=== PATIENT | female | born 1980 | race Caucasian/White ===

== ENCOUNTER 2021-02-24 06:00 | Outpatient (RCR) | payer MEDICAID, SELFPAY | END 2021-03-11 23:59 | disposition home or self-care (01) | LOC: APT 06:00 | PROVIDERS: PCP Nurse Practitioner Family; Referring Provider Nurse Practitioner Family; Visit Provider Nurse Practitioner Family | DX: G89.29 Other chronic pain (principal); M54.9 Dorsalgia, unspecified; Z78.9 Other specified health status; M51.26 Other intervertebral disc displacement, lumbar region | CPT/HCPCS: 97110; 97163 ==

== ENCOUNTER → 2021-02-25 10:00 | Outpatient (BNVA) | payer MEDICAID, SELFPAY | PROVIDERS: PCP Nurse Practitioner Family; Referring Provider Nurse Practitioner Family; Visit Provider Orthopaedic Surgery | DX: M54.5 Low back pain (principal); M48.061 Spinal stenosis, lumbar region without neurogenic claudication | CPT/HCPCS: 72110 ==

== ENCOUNTER → 2021-08-23 17:03 | Outpatient (BNVA) | payer MEDICAID, SELFPAY | PROVIDERS: PCP Nurse Practitioner Family; Visit Provider Nurse Practitioner Family | DX: M25.50 Pain in unspecified joint (principal) | CPT/HCPCS: 80053; 84443; 85025; 85651; 86140; 86160; 86162; 86200; 86235; 86255; 86376; 86431 ==

== ENCOUNTER → 2021-10-06 12:33 | Outpatient (BNVA) | payer MEDICAID, SELFPAY | PROVIDERS: PCP Nurse Practitioner Family; Visit Provider Internal Medicine | DX: R76.8 Other specified abnormal immunological findings in serum (principal); M25.50 Pain in unspecified joint; M54.50 Low back pain, unspecified; Z11.59 Encounter for screening for other viral diseases; Z87.891 Personal history of nicotine dependence | CPT/HCPCS: 36415; 72202; 73120; 73620; 82550; 83516; 86704; 86803; 87340; 99204 ==

== ENCOUNTER → 2021-10-20 12:49 | Outpatient (BNVA) | payer MEDICAID, SELFPAY | PROVIDERS: PCP Nurse Practitioner Family; Visit Provider Internal Medicine Cardiovascular Disease | DX: M54.50 Low back pain, unspecified (principal); Z79.899 Other long term (current) drug therapy; M79.7 Fibromyalgia; R06.02 Shortness of breath; R07.9 Chest pain, unspecified; Z86.79 Personal history of other diseases of the circulatory system; Z98.890 Other specified postprocedural states | CPT/HCPCS: 99203; 99204; 99213; 99214 ==

== ENCOUNTER → 2021-12-23 08:49 | Outpatient (BNVA) | payer MEDICAID, SELFPAY | PROVIDERS: PCP Nurse Practitioner Family; Visit Provider Orthopaedic Surgery | DX: M48.062 Spinal stenosis, lumbar region with neurogenic claudication (principal) | CPT/HCPCS: 72110; 99214 ==

== ENCOUNTER 2022-01-14 12:50 | Outpatient (CLI) | payer MEDICAID, SELFPAY ==
--- NOTE | 2022-01-14 13:00 | MR_ITS ---
WS: [id number] MRI LUMBAR SPINE NONCONTRAST HISTORY: Chronic low back pain radiating down both legs. COMPARISON: None available. TECHNIQUE: Sagittal and axial multisequence imaging is submitted. L3 retrolisthesis by 2 mm. Otherwise the alignment is normal. No acute fractures or marrow edema. Disc spaces and vertebral body heights are well-preserved. Conus terminates normally at T12. L1-L2: Normal. L2-L3: Normal. L3-L4: Mild annular disc bulge with a central disc protrusion and annular fissure. There is mild encr oachment into the subarticular recesses. Additional very small bilateral foraminal disc protrusions. Mild bilateral facet joint fluid. No significant stenosis or encroachment upon the nerve roots. L4-L5: Mild annular disc bulge with a central disc protrusion and annular fissure. Mild encroachment into the thecal sac with deformity and encroachment upon the traversing L5 nerve roots. L5-S1: Mild asymmetric disc bulging to the RIGHT. Very minimal encroachment upon the RIGHT S1 nerve r oot. No significant displacement or stenosis. Paravertebral soft tissues are negative. MR/MR lumbar spine wo con* [id number] IMPRESSION: 1. No high-grade central or foraminal stenosis. 2. Small central and bilateral foraminal disc protrusions at L3-4. No signific ant encroachment upon the nerve roots or stenosis. 3. Small central disc protrusion with annular fissure at L4-5. Very mild encro achment without displacement on the traversing L5 nerve roots. 4. Mild asymmetric disc bulging at L5-S1 with minimal encroachment upon the RI GHT S1 nerve root.
== END 2022-01-14 12:51 | disposition home or self-care (01) ==
LOC: RAD 12:51
PROVIDERS: PCP Nurse Practitioner Family; Visit Provider Orthopaedic Surgery
DX: G89.29 Other chronic pain (principal); M51.26 Other intervertebral disc displacement, lumbar region; Q05.7 Lumbar spina bifida without hydrocephalus; M51.27 Other intervertebral disc displacement, lumbosacral region
CPT/HCPCS: 72148

== ENCOUNTER 2022-01-14 12:51 | Outpatient (CLI) | payer MEDICAID, SELFPAY ==
--- NOTE | 2022-01-14 13:45 | USCV_ITS ---
Mary Ann Sears Age: 41 Gender: F : 1980 Exam Date: 01/14/2022 13:49 Ordering Phys: Shelbie Mendoza MD ([email or web address]) Technologist: Shannon Salinas Exam Location[place] [facility] [place]ication: hx of open heart surgery BP: 90 / 60 HR: 62 Rhythm: Sinus Technical Quality: Good MEASUREMENTS (Male / Female) Normal Values 2D ECHO LV Diastolic Diameter PLAX 4.5 cm 4.2 - 5.9 / 3.9 - 5.3 cm LV Systolic Diameter PLAX 2.8 cm IVS Diastolic Thickness 1.3 cm 0.6 - 1.0 / 0.6 - 0.9 cm IVS Systolic Thickness 1.4 cm LVPW Diastolic Thickness 1.1 cm 0.6 - 1.0 / 0.6 - 0.9 cm LVPW Systolic Thickness 1.8 cm LVOT Diameter 2.1 cm LV Ejection Fraction 2D Teich 68.4 % LV Ejection Fraction MOD 2C 82.3 % LV Ejection Fraction 2C AL 83.6 % LA Diameter 3.0 cm LA Width 3.0 cm LA Height 4.5 cm RA Width 3.6 cm RA Height 4.5 cm Aorta at Sinotubular Diameter 3.1 cm IVC Diameter 1.8 cm M-MODE MV E Point Septal Separation 0.3 cm DOPPLER AV Peak Velocity 123.0 cm/s LVOT Peak Velocity 111.0 cm/s AV Area Cont Eq vti 3.3 cm squared AV Area Cont Eq pk 3.1 cm squared MV Peak Velocity 138.0 cm/s MV Area PHT 3.6 cm squared Mitral E to A Ratio 1.4 MV E' Velocity 53.0 cm/s Mitral E to MV E' Ratio 11.0 Mitral E to LV E' Lateral Ratio 9.2 Mitral E to LV E' Septal Ratio 13.9 TR Peak Velocity 170.5 cm/s TR Peak Gradient 11.6 mmHg Right Atrial Pressure 3.0 mmHg Pulmonary Artery Systolic Pressu 14.6 mmHg PV Peak Velocity 46.0 cm/s RV Acceleration Time 0.3 s RV Ejection Time 0.3 s RV AcT/ET 1.0 FINDINGS Left Ventricle Normal left ventricular size, systolic function and wall thickness, with no regional wall motion abnormalities. Left ventricular ejection fraction is estimated at 65 %. Normal diastolic function. There seems to be small ventricular septal defect with inos-ta-befys flow. Right Ventricle Normal right ventricular size and systolic function. Right ventricular systolic pressure 16 mmHg. Right Atrium Normal right atrial size. Left Atrium Mildly increased left atrial size. Mitral Valve Moderately thickened mitral valve. Mitral valve stenosis. Mild somewhat posteriorly directed mitral valve regurgitation. Aortic Valve Aortic valve not well visualized. No aortic valve stenosis. No aortic valve regurgitation. Tricuspid Valve Structurally normal tricuspid valve. No tricuspid valve stenosis. Trace to mild tricuspid valve regurgitation. Pulmonic Valve Pulmonic valve not well visualized. Pericardium No pericardial effusion. Aorta Normal size aortic root and proximal ascending aorta. IVC Normal IVC dimension with >50% respiratory change of the inferior vena cava. CONCLUSIONS 1. Normal left ventricular size, systolic function and wall thickness, with no regional wall motion abnormalities. Left ventricular ejection fraction is estimated at 65 %. Normal diastolic function. 2. Normal right ventricular size and systolic function. 3. There seems to be small ventricular septal defect with left- to-right flow. 4. Mild somewhat posteriorly directed mitral valve regurgitation. 5. ARON may be considered for further evaluation of ventricular septal defect. Shelbie Mendoza MD (Electronically Signed) Final Date: 25 January 2022 16:20 S
== END 2022-01-14 12:52 | disposition home or self-care (01) ==
PROVIDERS: PCP Nurse Practitioner Family; Visit Provider Internal Medicine Cardiovascular Disease
DX: R06.02 Shortness of breath (principal); R07.9 Chest pain, unspecified; Q21.0 Ventricular septal defect
CPT/HCPCS: 93306

== ENCOUNTER → 2022-01-18 14:44 | Outpatient (BNVA) | payer MEDICAID, SELFPAY | PROVIDERS: PCP Nurse Practitioner Family; Visit Provider Orthopaedic Surgery | DX: M48.062 Spinal stenosis, lumbar region with neurogenic claudication (principal) | CPT/HCPCS: 99214 ==

== ENCOUNTER 2022-05-31 13:03 | Emergency (ER) | payer MEDICAID, SELFPAY ==
[2022-05-31] VITALS (27 sets, daily range): BP systolic 102–131; BP diastolic 62–82; PULSE 64–85; RESP 14; TEMP 36.8; O2SAT 95–100
--- NOTE | 2022-05-31 13:09 | W.ED.CHESTPA ---
HPI - Chest Pain General: Chief Complaint: Chest Pain Stated Complaint: chest pain Time Seen by Provider: 05/31/22 13:09 Source: patient Mode of arrival: ambulatory History of Present Illness: 41 yo female presents emergency room complaining of chest pain for the last 10 to 12 days. Chest pain comes in the form of palpitations states she gets discomfort that radiates into her back and shoulder. She is essentially squeezed her chest that seems to help with time she not noticed anything that makes it better or worse is not associated with exertion not relieved by rest no nausea or vomiting. MD complaint: chest pain Pertinent past history: coronary artery disease Onset (ago): minute(s) Timing of current episode: episodic Prior episodes: Yes Onset: during rest Pain location: substernal Pain radiation: none Severity: mild Quality: tightness Relieving factors: nothing Exacerbating factors: nothing Context: recent illness Associated symptoms: Deny abdominal pain, diaphoresis, dyspnea, fever(s), leg edema, nausea, palpitations, sense of impending doom, syncope or vomiting Treatment prior to arrival: none Review of Systems Const: Denies: fever(s), chills, fatigue, malaise or diaphoresis ENMT: Denies: throat pain, ear or mastoid pain, nasal discharge or nasal congestion Card: Denies: chest pain, palpitations or syncope Resp: Denies: dyspnea GI: Denies: abdominal pain, nausea or vomiting : Denies: flank pain, difficulty voiding, dysuria, urinary frequency or urinary urgency Skin/Breast: Denies: rash or pruritus PFSH ED PFSH: Medical History (Updated 05/31/22 @ 16:24 by Corby Gallo DO) Methamphetamine dependence in remission Mitral valve stenosis Psychiatric care Ventricular septal defect Surgical History (Updated 05/31/22 @ 14:33 by Corby Gallo DO) History of open heart surgery VSD repair as a child Hx of elbow surgery left Hx of hysterectomy Hx of tubal ligation Family History Mother Psychiatric illness Other Cancer Social History Smoking and tobacco status: former smoker Alcohol intake: former Desire information about alcohol rehabilitation?: No Counseling given: Yes Desire information about substance/drug rehabilitation?: No Counseling given: Yes Adopted: No Caregiver/support person: No Lives independently: Yes Household members: children Housing: House Marital status: Number of children: 4 Highest education level completed: GED or Equivalent service: No Current occupational status: unemployed History of recent travel: No Physical Exam Const: COMMON NORMALS: no acute distress GENERAL APPEARANCE: cooperative and comfortable ORIENTATION/CONSCIOUSNESS: Yes awake, Yes oriented to person, Yes oriented to place and Yes oriented to time HENMT: COMMON NORMALS: normocephalic, atraumatic, hearing grossly normal bilaterally, external ears normal, EAC's normal, TM's normal bilaterally, Normal nasal mucous membranes and turbinates present, moist oral mucous membranes and oropharynx normal HEAD & SCALP: normocephalic and atraumatic NOSE: Normal nasal mucous membranes and turbinates present EXTERNAL EAR: Yes external ears normal EXTERNAL AUDITORY CANAL: EAC's normal TYMPANIC MEMBRANE: TM's normal bilaterally Eye: COMMON NORMALS: Equal, round and reactive pupils present, EOMs intact bilaterally, conjunctivae normal and no scleral icterus CONJUNCTIVA: Yes conjunctivae normal PUPIL: Yes Equal, round and reactive pupils present Neck/C-Spine: COMMON NORMALS: full ROM, no lymphadenopathy, supple and no JVD Lymph: LYMPHATIC: no lymphadenopathy noted and no lymphedema noted Resp: COMMON NORMALS: normal respiratory effort, No retractions, No use of accessory muscles and clear to auscultation bilaterally AUSCULTATION: clear to auscultation bilaterally Cardio: COMMON NORMALS: no JVD, regular rate, regular rhythm and No murmurs present (Cardio) RATE: regular rate RHYTHM: regular rhythm GI: COMMON NORMALS: Soft to palpation and No hepatosplenomegaly present AUSCULTATION: Yes normoactive bowel sounds PALPATION: Yes Soft to palpation, No Tenderness to palpation present (GI), No Guarding due to palpation present (GI) and Yes No hepatosplenomegaly present Extremity: COMMON NORMALS: normal to inspection, capillary refill normal, no clubbing, cyanosis or edema, no calf tenderness and no pedal edema Neuro: SENSORIUM/ORIENTATION: Yes oriented to person, Yes oriented to place and Yes oriented to time Skin: COMMON NORMALS: no rashes or lesions noted GENERAL SKIN EXAM: no rashes or lesions noted Course Vital Signs: Vital signs: Vital Signs Temperature 98.3 F 05/31/22 13:13 Pulse Rate 68 12/20/22 15:45 Respiratory Rate 14 05/31/22 13:13 Blood Pressure 112/77 05/31/22 16:00 Pulse Oximetry 98 05/31/22 15:45 Oxygen Delivery Me thod 05/31/22 13:13 MDM - Chest Pain Medical Decision Making Reviewed previous echo patient has mitral valve stenosis with some regurgitation as well as a residual ventricular septal defect that was had a previous apparent attempt when she was a child. Her EKGs and cardiac enzymes are negative some of this may be GI mediated. Dr. Mendoza has her scheduled to get a transesophageal echo. At this time do not believe there is anything that is acute she has recurrent symptoms she can return. We will discharge her home under see medications follow-up with Dr. Mendoza's office to complete the recommended testing. Medical Records I reviewed the patient's medical records. Lab Data I reviewed the patient's lab results. 05/31/22 13:45 05/31/22 13:45 Radiology Impressions Chest X-Ray 05/31/22 13:10 IMPRESSION: 1. No acute cardiopulmonary process. Laboratory Results WBC 6.2 10^3/uL (4.0-10.0) 05/31/22 13:45 RBC 4.02 10^6/uL (4.1-5.3) L 05/31/22 13:45 Hgb 12.8 g/dL (11.5-15.3) 05/31/22 13:45 Hct 39.1 % (37.0-47.0) 05/31/22 13:45 MCV 97.3 fl (81-99) 05/31/22 13:45 MCH 31.8 pg (28.0-34.0) 05/31/22 13:45 MCHC 32.7 g/dL (30.0-36.0) 05/31/22 13:45 RDW 12.2 % (12.1-15.1) 05/31/22 13:45 Plt Count 218 10^3/cmm (130-400) 05/31/22 13:45 MPV 10.7 fL (7.4-10.4) H 05/31/22 13:45 Neut % (Auto) 60.7 % 05/31/22 13:45 Lymph % (Auto) 30.0 % 05/31/22 13:45 [place] % (Auto) 5.8 % 05/31/22 13:45 Eos % (Auto) 2.7 % 05/31/22 13:45 Baso % (Auto) 0.5 % 05/31/22 13:45 Neut # (Auto) 3.78 10^3/uL (1.8-7.7) 05/31/22 13:45 Lymph # (Auto) 1.9 10^3/uL (0.8-4.8) 05/31/22 13:45 [place] # (Auto) 0.4 10^3/uL (0.2-0.9) 05/31/22 13:45 Eos # (Auto) 0.2 10^3/uL (0.0-0.8) 05/31/22 13:45 Baso # (Auto) 0.0 10^3/uL (0.0-0.1) 05/31/22 13:45 Nucleated RBC % (auto) 0 % 05/31/22 13:45 Nucleated RBCs # 0.0 /100WBC 05/31/22 13:45 Sodium 140 mmol/L (136-145) 05/31/22 13:45 Potassium 3.7 mmol/L (3.5-5.1) 05/31/22 13:45 Chloride 105 mmol/L (98-107) 05/31/22 13:45 Carbon Dioxide 25 mmol/L (22-29) 05/31/22 13:45 Anion Gap 13.7 (5-19) 05/31/22 13:45 BUN 6 mg/dL (6-20) 05/31/22 13:45 Creatinine 0.6 mg/dL (0.5-0.9) 05/31/22 13:45 GFR Calculation 109.6 mL/min (90-130) 05/31/22 13:45 Glucose 83 mg/dL (65-115) 05/31/22 13:45 Calculated Osmolality 287 mOsm/kg (285-295) 05/31/22 13:45 Calcium 9.6 mg/dL (8.5-10.5) 05/31/22 13:45 Total Bilirubin 0.3 mg/dL (0.15-1.2) 05/31/22 13:45 AST 17 U/L (0-32) 05/31/22 13:45 ALT 16 U/L (0-33) 05/31/22 13:45 Alkaline Phosphatase 38 U/L (35-105) 05/31/22 13:45 Troponin T Baseline 6 ng/L (0-10) 05/31/22 13:45 Troponin T 120 Minute 6.00 ng/L (0-10) 05/31/22 15:47 Total Protein 7.8 g/dL (6.6-8.7) 05/31/22 13:45 Albumin 4.9 g/dL (3.5-5.2) 05/31/22 13:45 Globulin 2.9 g/dL (1.3-4.6) 05/31/22 13:45 Discharge Plan Discharge Patient Disposition: Home Clinical Impression: Atypical chest pain, Ventricular septal defect, Mitral valve stenosis Condition: Stable Prescriptions: New pantoprazole 40 mg tablet,delayed release (DR/EC) 40 mg PO DAILY 56 Days Qty: 60 0RF No Action amitriptyline 25 mg tablet 25 mg PO DAILY PRN (Reason: fibromyalgia) Discharge Orders: Discharge ED (Routine); Ordered 05/31/22 Ordered By: Corby Gallo Referrals: Yuly Wagner FNP-C [Primary Care Provider] - Discharge Diet: Usual diet Discharge Activity: Resume usual activity Patient Instructions: Opioid Safety, Pain Management Activity Restrictions/Additional Instructions: You were seen today for atypical chest pain. Your EKG does not show any acute change and your cardiac enzymes were normal. Recommend that you follow-up with Dr. Mendoza as previously scheduled for the mitral valve stenosis and residual ventricular septal defect. According to her notes they were planning to do a transesophageal echo. Also recommend that you start on Protonix once daily. Coding Level of Care Code ED Small Business Director for Chg Fwd Exam Comprehensive
--- NOTE | 2022-05-31 13:10 | XR_ITS ---
WS: [id number] Exam: XR chest 1V portable [id number] Date/Time of Exam: 05/31/2022 1:21 PM Reason For Exam: dyspnea/cough No previous exams. The lungs are fully inflated and clear. Normal cardiomediastinal silhouette. Signs of previous median sternotomy. No pleural effusions. Regional bony elements appear normal. XR/XR chest 1V portable [id number] IMPRESSION: 1. No acute cardiopulmonary process.
--- NOTE | 2022-05-31 13:10 | ECG_ITS ---
[facility] Test Date: 2022-05-31 Pat Name: Mary Ann Sears Department: Room: Gender: Female Plow Holder: : 1980 Requested By: Corby Paredse Order Number: [id number] Yg MD: Luis Luque M.D. Measurements Intervals [place] Rate: 72 P: 30 [place]: 180 QRS: 108 QRSD: 122 T: 8 QT: 430 QTc: 471 Interpretive Statements SINUS RHYTHM RIGHT AXIS DEVIATION [QRS AXIS > 100] RIGHT BUNDLE BRANCH BLOCK [120+ ms QRS DURATION, UPRIGHT V1, 40+ ms S IN I/aVL/V4/V5/V6] No previous ECG available for comparison Electronically Signed On 05-31-2022 17:46:41 STILL PHOTOGRAPHER by Luis Luque M.D. [id number]
[2022-05-31 14:15] LABS: Basophils % 0.5 %; Eosinophils # 0.2 10^3/uL (0.0-0.8); Eosinophils % 2.7 %; Hematocrit 39.1 % (37.0-47.0); Hemoglobin 12.8 g/dL (11.5-15.3); Lymphocytes # 1.9 10^3/uL (0.8-4.8); Mean Corpuscular HGB Conc 32.7 g/dL (30.0-36.0); Mean Corpuscular Hemoglobin 31.8 pg (28.0-34.0); Mean Corpuscular Volume 97.3 fl (81-99); Mean Platelet Volume 10.7 fL (7.4-10.4); Monocytes # 0.4 10^3/uL (0.2-0.9); Monocytes % 5.8 %; Neutrophils # 3.78 10^3/uL (1.8-7.7); Neutrophils % 60.7 %; Nucleated Red Blood Cells % 0 %; Platelet Count 218 10^3/cmm (130-400); Red Blood Count 4.02 10^6/uL (4.1-5.3); Red Cell Distribution Width 12.2 % (12.1-15.1); White Blood Count 6.2 10^3/uL (4.0-10.0)
[2022-05-31 14:39] LABS: Troponin(5th) Baseline 6 ng/L (0-10)
[2022-05-31 14:41] LABS: Alanine Aminotransferase 16 U/L (0-33); Albumin Level 4.9 g/dL (3.5-5.2); Alkaline Phosphatase 38 U/L (35-105); Anion Gap 13.7 (5-19); Aspartate Amino Transferase 17 U/L (0-32); Blood Urea Nitrogen 6 mg/dL (6-20); Calcium 9.6 mg/dL (8.5-10.5); Carbon Dioxide 25 mmol/L (22-29); Chloride 105 mmol/L (98-107); Globulin 2.9 g/dL (1.3-4.6); Glomerular Filtration Rate 109.6 mL/min (90-130); Glucose 83 mg/dL (65-115); Osmolality Calculated 287 mOsm/kg (285-295); Potassium 3.7 mmol/L (3.5-5.1); Sodium 140 mmol/L (136-145); Total Bilirubin 0.3 mg/dL (0.15-1.2); Total Protein 7.8 g/dL (6.6-8.7)
--- NOTE | 2022-05-31 15:10 | ECG_ITS ---
[facility] Test Date: 2022-05-31 Pat Name: Mary Ann Sears Department: Room: Gender: Female Behavioral Scientist: : 1980 Requested By: Corby Paredes Order Number: [id number] Yg MD: Luis Luque M.D. Measurements Intervals [place] Rate: 66 P: 28 OR: 185 QRS: -40 QRSD: 119 T: 44 QT: 439 QTc: 460 Interpretive Statements SINUS RHYTHM LEFT AXIS DEVIATION [QRS AXIS < -30] LOW QRS VOLTAGE IN PRECORDIAL LEADS [QRS DEFLECTION < 1.0 mV IN CHEST LEADS] INCOMPLETE RIGHT BUNDLE BRANCH BLOCK [90+ ms QRS DURATION, TERMINAL R IN V1/V2, 40+ ms S IN I/aVL/V4/V5/V6] Compared to ECG 05/31/2022 13:25:44 Left-axis deviation now present Low QRS voltage now present Incomplete right bundle-branch block now present Right-axis deviation no longer present Right bundle-branch block no longer present Electronically Signed On 05-31-2022 17:49:20 LEAD DATABASE ADMINISTRATOR by Luis Luque M.D. [id number]
[2022-05-31 16:48] LABS: Troponin 5 2HR Delta 0 ABS# (0-10)
== END 2022-05-31 16:35 | disposition home or self-care (01) ==
PROVIDERS: Emergency Provider Family Medicine; PCP Nurse Practitioner Family
DX: R07.89 Other chest pain (principal); Q21.0 Ventricular septal defect; I05.0 Rheumatic mitral stenosis
CPT/HCPCS: 71045; 80053; 84484; 85025; 93005; 99285

== ENCOUNTER 2022-09-21 11:55 | Emergency (ER) | payer MEDICAID, SELFPAY ==
[2022-09-21 11:59] VITALS: BP 117/56; PULSE 88; RESP 16; TEMP 36.9; O2SAT 95
--- NOTE | 2022-09-21 12:22 | ED_ITS ---
HPI - Anxiety General: Chief Complaint: Anxiety Stated Complaint: VOMITING/ HYPERVENTILATING Time Seen by Provider: 09/21/22 12:02 Source: patient and EMS Mode of arrival: EMS Limitations: no limitations History of Present Illness: This patient was transported to the emergency department by EMS from her home this morning. She states that she is here because she was awoken by upset stomach and had vomiting which was subsequently followed by episodes of feeling like she could not catch her breath she states this cycle continued throughout the night with repetitive vomiting with loose stool as well and the feeling that she could not catch a deep breath and with associated tingling and numbness in her hands and feet and eventually cramping of her hands. She states she has a history of agoraphobia and has had anxiety in the past but has not had an episode like this for some time. She is unclear of why she had an episode of vomiting although she was eating some [place] food last night which she has not eaten before and she wonders if that may have triggered it. She denies any recent antibiotic use, recent travel. No one else ate the same meal. She does not have a history of current methamphetamine use, excessive caffeine etc. She does use marijuana very heavily but does not have any episodes of emesis associated with use of that street drug. She denies any abdominal pain. She denies blood in her stools or blood in her vomit. She states that she is not had any anxiety triggers or emotional events in the last few days. She not a tobacco user nonalcohol user. Does not feel short of breath now. She is some better but still has some tingling in her hands. Place: home [facility] ED PFSH: Medical History (Updated 09/21/22 @ 15:08 by Goldy Diaz DO) Methamphetamine dependence in remission Mitral valve stenosis Psychiatric care Ventricular septal defect Surgical History (Updated 05/31/22 @ 14:33 by Corby Gallo DO) History of open heart surgery VSD repair as a child Hx of elbow surgery left Hx of hysterectomy Hx of tubal ligation Family History Mother Psychiatric illness Other Cancer Social History Smoking and tobacco status: former smoker Alcohol intake: former Desire information about alcohol rehabilitation?: No Counseling given: Yes Desire information about substance/drug rehabilitation?: No Counseling given: Yes Adopted: No Caregiver/support person: No Lives independently: Yes Household members: children Housing: House Marital status: Number of children: 4 Highest education level completed: GED or Equivalent service: No Current occupational status: unemployed Course Reevaluation(s): Reevaluation #1: Patient is doing well. She has had no more episodes of emesis and feels calm without any persistent persistent symptoms of face or hand tingling etc. She does feel a bit tired and fatigued but again she did not sleep much last night. Laboratories reviewed. Her clinical picture is much improved. No evidence to suggest a worrisome etiology to her presentation today. Likely she i correcting her opinion no her initial GI upset was food related given no fevers no leukocytosis etc. that precipitated her hyperventilation anxiety with carpopedal spasm and usual associated symptoms. Clinically stable at this time to be discharged we discussed return precautions. Time: 15:05 Vital Signs: Vital signs: Vital Signs Temperature 98.5 F 09/21/22 11:59 Pulse Rate 84 09/21/22 15:17 Respiratory Rate 17 09/21/22 15:17 Blood Pressure 120/76 09/21/22 15:17 Pulse Oximetry 95 09/21/22 15:17 Oxygen Delivery Me thod Room Air 09/21/22 15:00 MDM - Anxiety Medical Decision Making This patient with a known history of agoraphobia and underlying anxiety had episodes of repetitive vomiting and diarrhea throughout the night and this seemingly was associated with episode of feeling like she could not catch her breath and hyperventilating. This continued throughout the night with associated extremity paresthesias, circumoral paresthesias and eventually she made her way to the emergency department. Her clinical examination was reassuring. No evidence of arrhythmia during her emergency department stay either on resting EKG or continuous monitoring. Vital signs are otherwise reassuring with no evidence of hypoxia etc. Low risk for thromboembolic events or other concerning diagnosis. Laboratories were also reassuring. She responded to IV fluids and monitoring with resolution of her symptoms. As noted likely related to food ingestion precipitating an anxiety attack. Certainly does not suggest more worrisome etiology. She does use marijuana but has not had any episodes of hyperemesis precipitated by marijuana use etc. Medical Records I reviewed the patient's medical records. Lab Data I reviewed the patient's lab results. 09/21/22 12:09/21/22 12: Laboratory Results WBC 8.1 10^3/uL (4.0-10.0) 09/21/22 12: RBC 4.38 10^6/uL (4.1-5.3) 09/21/22 12: Hgb 13.6 g/dL (11.5-15.3) 09/21/22 12: Hct 41.1 % (37.0-47.0) 09/21/22 12: MCV 93.8 fl (81-99) 09/21/22 12: MCH 31.1 pg (28.0-34.0) 09/21/22: MCHC 33.1 g/dL (30.0-36.0) 09/21/22: RDW 12.5 % (12.1-15.1) 09/21/22: Plt Count 208 10^3/cmm (130-400) 09/21/22: MPV 10.3 fL (7.4-10.4) 09/21/22: Neut % (Auto) 90.1 % 09/21/22: Lymph % (Auto) 6.8 % 09/21/22: [place] % (Auto) 2.7 % 09/21/22: Eos % (Auto) 0.0 % 09/21/22: Baso % (Auto) 0.2 % 09/21/22 Neut # (Auto) 7.30 10^3/uL (1.8-7.7) 09/21/22: Lymph # (Auto) 0.6 10^3/uL (0.8-4.8) L 09/21/22: [place] # (Auto) 0.2 10^3/uL (0.2-0.9) 09/21/22 12: Eos # (Auto) 0.0 10^3/uL (0.0-0.8) 09/21/22 12: Baso # (Auto) 0.0 10^3/uL (0.0-0.1) 04/12/23 12:29 Nucleated RBC % (auto) 0 % 09/21/22 12: Nucleated RBCs # 0.0 /100WBC 09/21/22 12:29 Sodium 142 mmol/L (136-145) 09/21/22 12: Potassium 3.7 mmol/L (3.5-5.1) 09/21/22 12: Chloride 107 mmol/L (98-107) 09/21/22 12: Carbon Dioxide 22 mmol/L (22-29) 09/21/22 12: Anion Gap 16.7 (5-19) 09/21/22 12:29 BUN 8 mg/dL (6-20) 09/21/22 12: Creatinine 0.6 mg/dL (0.5-0.9) 09/21/22 12: GFR Calculation 109.6 mL/min (90-130) 09/21/22 12: Glucose 105 mg/dL (65-115) 09/21/22 12: Calculated Osmolality 293 mOsm/kg (285-295) 09/21/22 12: Calcium 9.9 mg/dL (8.5-10.5) 09/21/22 12: Total Bilirubin 0.4 mg/dL (0.15-1.2) 09/21/22 12: AST 15 U/L (0-32) 09/21/22 12: ALT 12 U/L (0-33) 09/21/22 12:29 Alkaline Phosphatase 29 U/L (35-105) L 09/21/22 12: Total Protein 8.7 g/dL (6.6-8.7) 09/21/22 12: Albumin 5.1 g/dL (3.5-5.2) 09/21/22 12: Globulin 3.6 g/dL (1.3-4.6) 09/21/22 12: Lipase 19 U/L (13-60) 09/21/22 12:29 Discharge Plan Discharge Patient Disposition: Home Clinical Impression: Nausea vomiting and diarrhea, Hyperventilation Condition: Stable Prescriptions: No Action No Known Home Medications Discharge Orders: Discharge ED (Routine); Ordered 09/21/22 Ordered By: Goldy Diaz Referrals: Yuly Wagner FNP-C [Primary Care Provider] - Discharge Diet: Advance as tolerated Discharge Activity: Increase activity as tolerated Patient Instructions: Opioid Safety, Pain Management Activity Restrictions/Additional Instructions: As we discussed he did not display any signs of heart rhythm issues or other concerning factors while in the emergency department. You are probably correct in your summarization that this was probably precipitated by food exposure. We recommend sticking with clear liquids today and then advancing to a bland diet as tolerated. Should you develop any concerning symptoms such as return of difficulty breathing, fever, chills, palpitations other concerning symptoms return to the emergency department immediately for reevaluation. Coding Level of Care Code ED Senior Enterprise Architect for Suzanne Jefferson
--- NOTE | 2022-09-21 12:31 | ECG_ITS ---
[facility] Test Date: 2022-09-21 Pat Name: Mary Ann Sears Department: Room: Gender: Female Trading Assistant: : 1980 Requested By: Goldy Diaz Order Number: [id number] [id number] MD: uLis Luque M.D. Measurements Intervals Tram Rate: 73 P: 46 HI: 191 QRS: -42 QRSD: 109 T: 19 QT: 416 QTc: 460 Interpretive Statements SINUS RHYTHM LEFT AXIS DEVIATION [QRS AXIS < -30] LOW QRS VOLTAGE IN PRECORDIAL LEADS [QRS DEFLECTION < 1.0 mV IN CHEST LEADS] INCOMPLETE RIGHT BUNDLE BRANCH BLOCK [90+ ms QRS DURATION, TERMINAL R IN V1/V2, 40+ ms S IN I/aVL/V4/V5/V6] POSSIBLE ANTERIOR MYOCARDIAL INFARCTION , OF INDETERMINATE AGE [30 ms Q WAVE IN V3/V4, OR R < 0.2 mV IN V4] Compared to ECG 05/31/2022 15:11:34 Myocardial infarct finding now present Electronically Signed On 09-21-2022 16:20:49 CDT by Luis Luque M.D. [id number]
[2022-09-21 12:37] VITALS: BP 122/88; PULSE 83; O2SAT 98
[2022-09-21 12:39] LABS: Basophils % 0.2 %; Hematocrit 41.1 % (37.0-47.0); Hemoglobin 13.6 g/dL (11.5-15.3); Lymphocytes # 0.6 10^3/uL (0.8-4.8); Lymphocytes % 6.8 %; Mean Corpuscular HGB Conc 33.1 g/dL (30.0-36.0); Mean Corpuscular Hemoglobin 31.1 pg (28.0-34.0); Mean Corpuscular Volume 93.8 fl (81-99); Mean Platelet Volume 10.3 fL (7.4-10.4); Monocytes # 0.2 10^3/uL (0.2-0.9); Monocytes % 2.7 %; Neutrophils % 90.1 %; Nucleated Red Blood Cells % 0 %; Platelet Count 208 10^3/cmm (130-400); Red Blood Count 4.38 10^6/uL (4.1-5.3); Red Cell Distribution Width 12.5 % (12.1-15.1); White Blood Count 8.1 10^3/uL (4.0-10.0)
[2022-09-21] MEDS: lactated ringers 1,000 ML 999 ML IV (12:55)
[2022-09-21] MEDS: ondansetron 2 mg/ML SDV 2 mL 4 MG IVP (12:55)
[2022-09-21] MEDS: hyDROXYzine 25 mg Capsule PO (12:56)
[2022-09-21 12:57] LABS: Alanine Aminotransferase 12 U/L (0-33); Albumin Level 5.1 g/dL (3.5-5.2); Alkaline Phosphatase 29 U/L (35-105); Anion Gap 16.7 (5-19); Aspartate Amino Transferase 15 U/L (0-32); Blood Urea Nitrogen 8 mg/dL (6-20); Calcium 9.9 mg/dL (8.5-10.5); Carbon Dioxide 22 mmol/L (22-29); Chloride 107 mmol/L (98-107); Globulin 3.6 g/dL (1.3-4.6); Glomerular Filtration Rate 109.6 mL/min (90-130); Glucose 105 mg/dL (65-115); Lipase 19 U/L (13-60); Osmolality Calculated 293 mOsm/kg (285-295); Potassium 3.7 mmol/L (3.5-5.1); Sodium 142 mmol/L (136-145); Total Bilirubin 0.4 mg/dL (0.15-1.2); Total Protein 8.7 g/dL (6.6-8.7)
[2022-09-21 13:37] VITALS: BP 123/72; PULSE 67; O2SAT 100
[2022-09-21 15:00] VITALS: BP 132/78; PULSE 81; O2SAT 97
[2022-09-21 15:17] VITALS: BP 120/76; PULSE 84; RESP 17; O2SAT 95
== END 2022-09-21 15:15 | disposition home or self-care (01) ==
PROVIDERS: Emergency Provider Emergency Medicine; PCP Nurse Practitioner Family
DX: R06.4 Hyperventilation (principal); R11.2 Nausea with vomiting, unspecified; R19.7 Diarrhea, unspecified; Z87.891 Personal history of nicotine dependence
CPT/HCPCS: 80053; 83690; 85025; 93005; 96361; 96374; 99284; J2405; J7120

== ENCOUNTER 2023-02-06 20:08 | Emergency (ER) | payer MEDICAID, SELFPAY ==
[2023-02-06 20:19] VITALS: BP 144/98; PULSE 106; RESP 16; TEMP 36.8; O2SAT 98; BMI 22.2
--- NOTE | 2023-02-06 20:42 | XRR_ITS ---
PROCEDURE INFORMATION: Exam: XR Chest Exam date and time: 02/06/2023 8:54 PM Age: 42 years old Clinical indication: Pain; Chest pressure; Prior surgery; Surgery date: 6+ months; Surgery type: Open heart; Additional info: Cp TECHNIQUE: Imaging protocol: Radiologic exam of the chest. Views: 1 view. COMPARISON: CR XR chest 1V portable [id number] 05/31/2022 1:28 PM FINDINGS: Lungs: The lungs are fully inflated. No pulmonary consolidation. There are subcentimeter calcified granulomas or lymph nodes in the right mid lung field, stable from the comparison study. Pleural spaces: No pleural effusion or pneumothorax. Heart/Mediastinum: Normal in size. Bones/joints: There has been a median sternotomy for coronary revascularization. XR/XR chest 1V portable [id number] IMPRESSION: 1. No acute cardiopulmonary findings. 2. Status post median sternotomy. 3. Old granulomatous disease.
--- NOTE | 2023-02-06 20:45 | W.ED.CHESTPA ---
HPI - Chest Pain General: Chief Complaint: Chest Pain Stated Complaint: Hand Going Numb and White Time Seen by Provider: 02/06/23 20:45 History of Present Illness: 42-year-old female comes in today with some complaints of chest discomfort with numbness and tingling in bilateral hands. Patient told nursing at first that she thinks she might just be really anxious after a call from the infection control manager office regarding a follow-up appointment. Patient has some abnormalities to a valve and a possible hole in the ventricle of her heart that she is post to have followed up on but the appointments have been delayed. 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 Patient also has a substance use disorder history. After seeing that she had a phone call from the infection control manager office patient became upset and anxious. Patient does not know if it is her heart or if she is having anxiety regarding the appointment. Patient does take Wellbutrin for her mental health concerns that she started about 3 weeks ago. Review of Systems General: Reports: 10 or more systems reviewed and unremarkable except in HPI and below Card: Reports: chest pain Neuro: Reports: numbness in extremities PFSH ED PFSH: Medical History (Updated 02/06/23 @ 22:12 by MABEL Jones) Methamphetamine dependence in remission Mitral valve stenosis Ventricular septal defect Surgical History (Updated 05/31/22 @ 14:33 by Corby Gallo DO) History of open heart surgery VSD repair as a child Hx of elbow surgery left Hx of hysterectomy Hx of tubal ligation Family History Mother Psychiatric illness Other Cancer Social History Smoking and tobacco status: former smoker Alcohol intake: former Desire information about alcohol rehabilitation?: No Counseling given: Yes Substance/Drug Use: current Substance/Drug use frequency: daily Other substance/drug use details: Medical marijuana Desire information about substance/drug rehabilitation?: No Counseling given: Yes Adopted: No Caregiver/support person: No Lives independently: Yes Household members: children Housing: House Marital status: Number of children: 4 Highest education level completed: GED or Equivalent service: No Current occupational status: unemployed Physical Exam Const: COMMON NORMALS: alert HENMT: COMMON NORMALS: normocephalic HEAD & SCALP: normocephalic Neck/C-Spine: COMMON NORMALS: full ROM and no meningeal signs Resp: COMMON NORMALS: normal respiratory effort and clear to auscultation bilaterally AUSCULTATION: clear to auscultation bilaterally Cardio: COMMON NORMALS: regular rate and regular rhythm RATE: regular rate RHYTHM: regular rhythm GI: COMMON NORMALS: Soft to palpation and non-tender PALPATION: Yes Soft to palpation Back/Pelvis: COMMON NORMALS: thoracic and lumbar spine normal to inspection Extremity: COMMON NORMALS: no pedal edema Neuro: SENSORIUM/ORIENTATION: Yes alert MENINGEAL SIGNS: Yes no meningeal signs Course Vital Signs: Vital signs: Vital Signs Temperature 98.2 F 02/06/23 20:19 Pulse Rate 106 H 02/06/23 20:19 Respiratory Rate 16 02/06/23 20:19 Blood Pressure 144/98 02/06/23 20:19 Pulse Oximetry 98 02/06/23 20:19 Oxygen Delivery Me thod Room Air 02/06/23 20:19 MDM - Chest Pain Medical Decision Making 42-year-old female comes in today for complaints of chest pain and anxiety. On exam patient appears nontoxic. Abdomen soft nontender. Skin is warm and dry. No edema is noted in the extremities. Heart rates regular in the low 100s. Pulses are palpated in all extremities. Differential diagnosis includes but not limited to hypertension, anxiety, ACS, CHF, arrhythmia. EKG showed no significant abnormalities from prior exam. Chest x-ray was unremarkable. Laboratory values were all normal. Reviewed exam with patient with recommendations for treatment and follow-up. Patient reported understanding and agreed to plan. Lab Data 02/06/23 21:20 02/06/23 21:20 Radiology Impressions Chest X-Ray 02/06/23 20:42 IMPRESSION: 1. No acute cardiopulmonary findings. 2. Status post median sternotomy. 3. Old granulomatous disease. Laboratory Results WBC 6.56 10^3/uL (3.29-11.43) 02/06/23 21:20 RBC 4.13 10^6/uL (3.85-5.65) 02/06/23 21:20 Hgb 13.20 g/dL (11.27-16.99) 02/06/23 21:20 Hct 39.5 % (36-47) 02/06/23 21:20 MCV 95.6 fl (85-98) 02/06/23 21:20 MCH 32.0 pg (27-33) 02/06/23 21:20 MCHC 33.4 g/dL (30-55) 02/06/23 21:20 RDW 12.7 % (12.1-15.1) 02/06/23 21:20 Plt Count 187 10^3/cmm (157-399) 02/06/23 21:20 MPV 10.3 fL (7.4-10.4) 02/06/23 21:20 Neut % (Auto) 69.2 % 02/06/23 21:20 Lymph % (Auto) 21.2 % 02/06/23 21:20 Newton % (Auto) 7.2 % 02/06/23 21:20 Eos % (Auto) 1.8 % 02/06/23 21:20 Baso % (Auto) 0.3 % 02/06/23 21:20 Neut # (Auto) 4.54 10^3/uL (1.8-7.7) 02/06/23 21:20 Lymph # (Auto) 1.4 10^3/uL (0.8-4.8) 02/06/23 21:20 Newton # (Auto) 0.5 10^3/uL (0.2-0.9) 02/06/23 21:20 Eos # (Auto) 0.1 10^3/uL (0.0-0.8) 02/06/23 21:20 Baso # (Auto) 0.0 10^3/uL (0.0-0.1) 02/06/23 21:20 Nucleated RBC % (auto) 0 % 02/06/23 21:20 Nucleated RBCs # 0.0 /100WBC 02/06/23 21:20 Sodium 140 mmol/L (136-145) 02/06/23 21:20 Potassium 3.8 mmol/L (3.5-5.1) 02/06/23 21:20 Chloride 106 mmol/L (98-107) 02/06/23 21:20 Carbon Dioxide 24 mmol/L (22-29) 02/06/23 21:20 Anion Gap 13.8 (5-19) 02/06/23 21:20 BUN 8 mg/dL (6-20) 02/06/23 21:20 Creatinine 0.6 mg/dL (0.5-0.9) 02/06/23 21:20 GFR Calculation 109.1 mL/min (90-130) 02/06/23 21:20 Glucose 89 mg/dL (65-115) 02/06/23 21:20 Calculated Osmolality 288 mOsm/kg (285-295) 02/06/23 21:20 Calcium 9.4 mg/dL (8.5-10.5) 02/06/23 21:20 Total Bilirubin 0.4 mg/dL (0.15-1.2) 02/06/23 21:20 AST 13 U/L (0-32) 02/06/23 21:20 ALT 12 U/L (0-33) 02/06/23 21:20 Alkaline Phosphatase 29 U/L (35-105) L 02/06/23 21:20 Troponin T Baseline 6 ng/L (0-10) 02/06/23 21:20 NT-Pro-B Natriuret Pep 130 pg/mL (0-125) H 02/06/23 21:20 Total Protein 7.7 g/dL (6.6-8.7) 02/06/23 21:20 Albumin 5.1 g/dL (3.5-5.2) 02/06/23 21:20 Globulin 2.6 g/dL (1.3-4.6) 02/06/23 21:20 EKG Data EKG 1: EKG interpretation date: 02/06/23 EKG interpretation time: 21:28 Prior EKG tracings: available for review Interpretation: EKG shows a sinus rhythm with a regular rate at [address] elevation or ectopy is noted. Prior reading was not seen for comparison. Computer generated interpretation: Sinus rhythm, incomplete right bundle branch block, left anterior fascicular block, moderate T wave abnormality consider anterior ischemia. Compared to EKG 09/21/2022, left anterior fascicular block now present, T wave abnormality now present, possible ischemia now present, left axis deviation no longer present, myocardial infarct finding no longer present. Discharge Plan Discharge Patient Disposition: Home Clinical Impression: Chest pain Qualifiers: Chest pain type: unspecified Qualified Code(s): R07.9 - Chest pain, unspecified Condition: Stable Prescriptions: No Action No Known Home Medications Discharge Orders: Discharge ED (Routine); Ordered 02/06/23 Ordered By: Jhoan Martinez Referrals: Corwin Zimmer MD [Primary Care Provider] - Discharge Diet: Usual diet Discharge Activity: Increase activity as tolerated Patient Instructions: Chest Pain (ED) Activity Restrictions/Additional Instructions: Home and rest. Continue with routine care. Follow-up with infection control manager at scheduled appointment. Return to ED for worsening symptoms. Coding Level of Care Code ED Head Of Precision Targeting for Suzanne Jefferson
--- NOTE | 2023-02-06 21:12 | ECG_ITS ---
[facility] Test Date: 2023-02-06 Pat Name: Mary Ann Sears Department: Room: Gender: Female Pulmonary Fellow: : 1980 Requested By: Chirag Fung Order Number: [id number] MD: Booker Iqbal M.D. Measurements Intervals Keller Rate: 91 P: 66 ND: 190 QRS: -55 QRSD: 117 T: 54 QT: 371 QTc: 458 Interpretive Statements SINUS RHYTHM INCOMPLETE RIGHT BUNDLE BRANCH BLOCK [90+ ms QRS DURATION, TERMINAL R IN V1/V2, 40+ ms S IN I/aVL/V4/V5/V6] LEFT ANTERIOR FASCICULAR BLOCK [QRS AXIS <= -45, QR IN I, RS IN II] MODERATE T-WAVE ABNORMALITY, CONSIDER ANTERIOR ISCHEMIA [-0.1+ mV T-WAVE IN V3/V4] Compared to ECG 09/21/2022 12:31:34 Left anterior fascicular block now present T-wave abnormality now present Possible ischemia now present Left-axis deviation no longer present Myocardial infarct finding no longer present Electronically Signed On 02-07-2023 23:53:28 CDT by Booker Iqbal M.D. [id number]
[2023-02-06 21:27] LABS: Basophils % 0.3 %; Eosinophils # 0.1 10^3/uL (0.0-0.8); Eosinophils % 1.8 %; Hematocrit 39.5 % (36-47); Lymphocytes # 1.4 10^3/uL (0.8-4.8); Lymphocytes % 21.2 %; Mean Corpuscular HGB Conc 33.4 g/dL (30-55); Mean Corpuscular Volume 95.6 fl (85-98); Mean Platelet Volume 10.3 fL (7.4-10.4); Monocytes # 0.5 10^3/uL (0.2-0.9); Monocytes % 7.2 %; Neutrophils # 4.54 10^3/uL (1.8-7.7); Neutrophils % 69.2 %; Nucleated Red Blood Cells % 0 %; Platelet Count 187 10^3/cmm (157-399); Red Blood Count 4.13 10^6/uL (3.85-5.65); Red Cell Distribution Width 12.7 % (12.1-15.1); White Blood Count 6.56 10^3/uL (3.29-11.43)
[2023-02-06 21:51] LABS: Troponin(5th) Baseline 6 ng/L (0-10)
[2023-02-06 22:00] LABS: Alanine Aminotransferase 12 U/L (0-33); Albumin Level 5.1 g/dL (3.5-5.2); Alkaline Phosphatase 29 U/L (35-105); Anion Gap 13.8 (5-19); Aspartate Amino Transferase 13 U/L (0-32); Blood Urea Nitrogen 8 mg/dL (6-20); Calcium 9.4 mg/dL (8.5-10.5); Carbon Dioxide 24 mmol/L (22-29); Chloride 106 mmol/L (98-107); Globulin 2.6 g/dL (1.3-4.6); Glomerular Filtration Rate 109.1 mL/min (90-130); Glucose 89 mg/dL (65-115); NT Pro B Type Natriuretic Pept 130 pg/mL (0-125); Osmolality Calculated 288 mOsm/kg (285-295); Potassium 3.8 mmol/L (3.5-5.1); Sodium 140 mmol/L (136-145); Total Bilirubin 0.4 mg/dL (0.15-1.2); Total Protein 7.7 g/dL (6.6-8.7)
== END 2023-02-06 22:18 | disposition home or self-care (01) ==
PROVIDERS: Emergency Medicine; Emergency Provider Nurse Practitioner Family; PCP Family Medicine
DX: R07.9 Chest pain, unspecified (principal); Z87.891 Personal history of nicotine dependence
CPT/HCPCS: 36415; 71045; 80053; 83880; 84484; 85025; 93005; 99285

== ENCOUNTER 2023-07-11 09:47 | Outpatient (CLI) | payer MEDICAID, SELFPAY ==
--- NOTE | 2023-07-11 09:50 | MM_ITS ---
WS: [id number] DIAGNOSTIC BILATERAL DIGITAL BREAST TOMOSYNTHESIS MAMMOGRAPHY WITH CAD RIGHT breast ultrasound, limited. HISTORY: RIGHT breast lump. COMPARISON: None available. TECHNIQUE: Bilateral craniocaudad, mediolateral oblique, and mediolateral views are submitted with to mosdick and RAY. Computer aided detection utilized. Breast composition: The breasts are extremely dense, which lowers the sensitivity of mammography. Mar ker is placed upper outer quadrant RIGHT breast at the site of the palpable abnormality. There is no distortion or mass identified. Neither breast contains calcifications. RIGHT breast ultrasound, limited. Ultrasound is directed to the upper outer quadrant of the RIGHT breast. There is a simple cyst which is slightly lobulated. This may be two small cysts inseparable from each other. In their entirety thi s cystic collection measures 9 x 7 x 5 mm. No solid mass or distortion. IMPRESSION: MM/[place] [id number] BI-RADS: 2-Benign FOLLOW UP: 1 Year Follow-up Palpable mass upper outer quadrant RIGHT breast corresponds to 2 small insepara ble cysts.
--- NOTE | 2023-07-11 10:34 | US_ITS ---
WS: [id number] DIAGNOSTIC BILATERAL DIGITAL BREAST TOMOSYNTHESIS MAMMOGRAPHY WITH CAD RIGHT breast ultrasound, limited. HISTORY: RIGHT breast lump. COMPARISON: None available. TECHNIQUE: Bilateral craniocaudad, mediolateral oblique, and mediolateral views are submitted with to mosdick and RAY. Computer aided detection utilized. Breast composition: The breasts are extremely dense, which lowers the sensitivity of mammography. Mar ker is placed upper outer quadrant RIGHT breast at the site of the palpable abnormality. There is no distortion or mass identified. Neither breast contains calcifications. RIGHT breast ultrasound, limited. Ultrasound is directed to the upper outer quadrant of the RIGHT breast. There is a simple cyst which is slightly lobulated. This may be two small cysts inseparable from each other. In their entirety thi s cystic collection measures 9 x 7 x 5 mm. No solid mass or distortion. IMPRESSION: US/US breast RT limited* [id number] BI-RADS: 2-Benign FOLLOW UP: 1 Year Follow-up Palpable mass upper outer quadrant RIGHT breast corresponds to 2 small insepara ble cysts.
== END 2023-07-11 09:48 | disposition home or self-care (01) ==
LOC: RAD 09:47
PROVIDERS: PCP Family Medicine; Visit Provider Family Medicine
DX: N63.0 Unspecified lump in unspecified breast (principal); N60.01 Solitary cyst of right breast; R92.30 Dense breasts, unspecified
CPT/HCPCS: 76642; 77062; G0279